=== PATIENT | female | born 1960 | race Caucasian/White ===

== ENCOUNTER → 2020-01-15 10:06 | Outpatient (CLI) | payer SELFPAY ==
[2020-01-15 10:46] LABS: Hemoglobin A1C% w Est Avg Glu 6.6 % (4.0-6.0)
[2020-01-15 11:47] LABS: Alanine Aminotransferase 30 IU/L (<35); Albumin 4.2 g/dL (3.5-5.0); Albumin Globulin Ratio 1.5 (1.0-2.8); Alkaline Phosphatase 88 U/L (38-126); Aspartate Aminotransferase 29 IU/L (14-36); BUN Creatinine Ratio 18.4 (6-22); Bilirubin Total 0.6 mg/dL (0.2-1.3); Blood Urea Nitrogen 14 mg/dL (7-17); Calcium 9.7 mg/dL (8.4-10.2); Carbon Dioxide 25 mmol/L (22-32); Chloride 107 mmol/L (98-107); Cholesterol 181 mg/dL (140-199); Estimated Glomerular Filt Rate > 60.0 mL/min (>60); Globulin 2.8 g/dL (1.7-4.1); Glucose 148 mg/dL (80-110); HDL Cholesterol 56 mg/dL (40-60); HEMOLYSIS < 15 (0-50); LDL Cholesterol Calculated 101 mg/dL (<100); Potassium 5.3 mmol/L (3.4-5.1); Sodium 138 mmol/L (137-145); Triglycerides 118 mg/dL (35-150)
== END ==
PROVIDERS: Family Provider Family Medicine; PCP Family Medicine; Referring Provider Family Medicine; Visit Provider Family Medicine
DX: E78.5 Hyperlipidemia, unspecified (principal); R73.01 Impaired fasting glucose
CPT/HCPCS: 36415; 80053; 80061; 83036

== ENCOUNTER → 2021-10-24 15:19 | Outpatient (CLI) | payer OTHER, SELFPAY ==
--- NOTE | 2021-10-24 | DI.MG.S_ITS ---
BILATERAL DIGITAL SCREENING MAMMOGRAM 3D/2D WITH CAD: 10/24/2021 CLINICAL: Routine screening. Comparison is made to exams dated: 10/01/2016 mammogram, 09/26/2015 mammogram, and 11/04/2013 mammogram - . There are scattered fibroglandular elements in both breasts. Current study was also evaluated with a Computer Aided Detection (CAD) system. There are benign vascular calcifications in both breasts. No significant masses, calcifications, or other findings are seen in either breast. There has been no significant interval change. IMPRESSION: BENIGN There is no mammographic evidence of malignancy. A 1 year screening mammogram is recommended. This exam was interpreted at Station ID: [id number]. NOTE: For mammograms, a report in lay terms will be sent to the patient. Approximately 15% of breast malignancies will not be visualized mammographically. In the management of a palpable breast mass, a negative mammogram must not discourage biopsy of a clinically suspicious lesion. Electronically Signed By: Bee augustine/pauline:10/25/2021 08:56:36 letter sent: Normal Exam ACR BI-RADS Category 2: Benign Finding(s) 3342F
== END ==
PROVIDERS: Family Provider Family Medicine; PCP Family Medicine; Referring Provider Family Medicine; Visit Provider Family Medicine
DX: Z12.31 Encounter for screening mammogram for malignant neoplasm of breast (principal)
CPT/HCPCS: 77063; 77067

== ENCOUNTER → 2021-10-25 14:02 | Outpatient (CLI) | payer OTHER, SELFPAY ==
[2021-10-25 14:54] LABS: COVID19 -Nasal RAPID Negative (Negative)
== END ==
PROVIDERS: Family Provider Family Medicine; PCP Family Medicine; Visit Provider Nurse Practitioner Family
DX: Z20.822 Contact with and (suspected) exposure to COVID-19 (principal)
CPT/HCPCS: 87635; C9803

== ENCOUNTER 2021-10-27 14:55 | Day surgery (SDC) | payer OTHER, SELFPAY ==
--- NOTE | 2021-10-27 12:40 | P.HP_ITS ---
History of Present Illness History of Present Illness Date Patient Seen: 10/27/21 Chief complaint: SCREENING COLONOSCOPY Narrative: 60 Years Old Female seen today for consideration of a screening colonoscopy. Last colonoscopy in 2010 was normal. There have been no lower GI symptoms sugg esting disease such as change in bowel habits, bleeding, abdominal pain or anemia. There's been no family history of colon cancer or colon polyps. Overall health issues have been stable, including no major cardiac events for at least 6 weeks. Past Medical History: Hx of Abnormal Pap Smear: 02/06/10 AGC, HPV neg; Colpo 03/14/2010 COVID-19 CORONAVIRUS INFECTION: Diabetes, Type 2: HYPERTENSION: VITAMIN D DEFICIENCY: HYPERLIPIDEMIA: Neutropenia: CERVICAL DYSPLASIA, NOS: MELANOMA: INSOMNIA: DEPRESSION/ANXIETY: MIGRAINE: HYPERALDOSTERONISM: Past Surgical History: Right 1st metatarsophalangeal joint capsulotomy Colposcopy, 03/14/2010 Colonoscopy, 2010, normal Family History: Father: from cirrhosis of the liver; alcoholic Mother: healthy, alive; diverticulitis, hypertension, hyperlipidemia Sister with hyperlipidemia MGM: DM-2 Social History: Marital Status: 07/26/12 Children: 6 Household Members: 3 Education: 13 Patient History Medical History (Updated 10/27/21 @ 10:40 by Michelle Duncan RN) Diabetes Hyperlipidemia Hypertension Neutropenia Vitamin D deficiency Surgical History (Updated 10/27/21 @ 10:43 by Michelle Duncan RN) H/O foot surgery History of colposcopy Hx of colonoscopy Family & Social History Tobacco & Substance use: Smoking Status Never smoker Meds Home Medications and Allergies Home Medications Medication Instructions Recorded Confirmed Type atorvastatin 10 mg tablet 10 mg PO DAILY 07/22/21 10/27/21 History metoprolol succinate 25 mg 12.5 mg PO DAILY 07/22/21 10/27/21 History tablet,extended release 24 hr metformin 500 mg tablet 500 mg PO DAILY 10/27/21 10/27/21 History trazodone 100 mg tablet 200 mg PO DAILY 10/27/21 10/27/21 History Allergies Allergy/AdvReac Type Severity Reaction Status Date / Time No Known Drug Allergies Allergy Verified 10/27/21 15:33 Review of Systems Review of Systems Narrative: All remaining ROS were reviewed and negative except as addressed. Exam Narrative Exam Narrative: GENERAL: Alert and oriented, appearing stated age and in no acute distress. HEENT: Head normocephalic/atraumatic. Extraocular movements intact. LUNGS: Clear to ausculation bilaterally, no wheezes, rhonchi or rales. CV: Normal S1 and S2 with regular rate and rhythm, no audible murmurs, rubs or gallops. ABDOMEN: Soft, non-tender, non-distended, no organomegaly. Positive bowel sounds. EXTREMITIES: No clubbing, cyanosis, or edema. NEURO: Cranial nerves II through XII grossly intact, no focal deficits. PSYCH: Alert and oriented x 3. SKIN: No concerning lesions. Assessment & Plan Assessment & Plan narrative: 1. Screening for colon cancer Plan for colonoscopy. The nature and character of the procedure as well as a nticipated results were discussed. The possibility of not completing the procedure was also discussed. Possible complications including aspiration pneumonia, bleeding, perforation and reaction to medications either for sedation or preparation and missed lesions were discussed. Questions were answered and proceeding to the colonoscopy was elected. Informed consent signed. I sincerely appreciate the referral allowing me to participate in this patient's care. Please contact me with any questions or concerns.
--- NOTE | 2021-10-27 12:42 | PM.OP.COLON ---
Operative Date/Time/Diagnoses Date of procedure: 10/27/21 Procedure Notes SCOAP/Timeout: 4:07 p.m. Procedure in detail: ENDOSCOPIST: Taylor Coronel MD Sedation RN: Tova Urrutia RN Sedation start time: 4:08 p.m. Sedation end time: 4:22 p.m. PROCEDURE: Colonoscopy INDICATIONS: 1. Screening for colon cancer MEDICATION: Levsin 0.125 mg sublingual, incremental doses of Versed and fentanyl until appropriate level sedation achieved. ASA CLASS: 2 CECAL WITHDRAWAL TIME: 6 minutes COMPLICATIONS: None. EXTENT OF PROCEDURE: Cecum. QUALITY OF PREP: Good with portions of liquid stool. PROCEDURE: Prior to insertion of the colonoscope, a digital rectal examination was accomplished with circumferential palpation of the distal rectal mucosa without significant findings being noted. The high-definition colonoscope was passed into the rectum in the usual fashion and advanced over to the cecum without difficulty. The ileocecal valve, appendiceal stoma, and medial wall all could be inspected and no abnormalities were seen. ASCENDING COLON: As the colonoscope was withdrawn, care was taken to expose and inspect the haustral folds and no abnormalities were seen. HEPATIC FLEXURE: Normal, no polyps, diverticula or other abnormalities. TRANSVERSE COLON: Normal, no polyps, diverticula or other abnormalities. DESCENDING COLON: Mild diverticulosis, otherwise normal, no polyps, or other abnormalities. SIGMOID COLON: Mild diverticulosis, otherwise normal, no polyps or other abnormalities. RECTUM: Normal. J maneuver was produced. There was no significant perianal disease. The J maneuver was broken. The remainder of the rectum was inspected and there was no external hemorrhoid disease. The scope was withdrawn. IMPRESSION: 1. Normal colonoscopy 2. Mild diverticulosis, left-sided PLAN: 1. Repeat colonoscopy 10 years. The possibility of a missed lesion including a malignancy has been discussed with the patient previously. Potential alarm symptoms have been discussed and should be reported immediately.
[2021-10-27] MEDS: HYOSCYAMINE 0.125 MG TABLET PO (15:18)
[2021-10-27] MEDS: LACTATED RINGERS 1,000 ML 200 ML IV (15:18)
[2021-10-27 15:27] VITALS: BP 128/80; PULSE 85; RESP 20; TEMP 36.2; O2SAT 98; BMI 34.5
[2021-10-27] MEDS: ONDANSETRON 4 MG/2 ML INJ IV (16:01)
[2021-10-27] MEDS: fentaNYL 250 MCG/5 ML INJ IV (16:09)
[2021-10-27] MEDS: MIDAZOLAM 5 MG/5 ML VIAL IV (16:09)
[2021-10-27 16:25] VITALS: BP 130/73; PULSE 85; RESP 16; TEMP 36.7; O2SAT 97
[2021-10-27 16:30] VITALS: BP 134/78; PULSE 74; RESP 16; O2SAT 98
[2021-10-27 16:38] VITALS: BP 134/78; PULSE 82; RESP 16; O2SAT 98
[2021-10-27 16:49] VITALS: BP 124/71; PULSE 80; RESP 16; TEMP 36.4; O2SAT 98
== END 2021-10-27 17:20 | disposition home or self-care (01) ==
PROVIDERS: Family Provider Family Medicine; PCP Family Medicine; Referring Provider Student in an Organized Health Care Education/Training Program; Visit Provider Student in an Organized Health Care Education/Training Program
PROC: 0DJD8ZZ Inspection of Lower Intestinal Tract, Via Natural or Artificial Opening Endoscopic (ICD-10-PCS; CPT 45378; principal; 2021-10-27 16:00)
DX: Z12.11 Encounter for screening for malignant neoplasm of colon (principal); E11.9 Type 2 diabetes mellitus without complications; Z79.84 Long term (current) use of oral hypoglycemic drugs; I10 Essential (primary) hypertension; K57.30 Diverticulosis of large intestine without perforation or abscess without bleeding
CPT/HCPCS: 45378; J2250; J2405; J3010

== ENCOUNTER → 2021-12-25 15:58 | Outpatient (CLI) | payer OTHER, SELFPAY ==
--- NOTE | 2021-12-25 16:01 | DI.RAD.S_ITS ---
PROCEDURE: XR FOOT RT MIN 3V INDICATIONS: PAIN IN RIGHT FOOT TECHNIQUE: 3 views of the foot were acquired. COMPARISON: [facility] [place], CR, FOOT COMP MIN 3VW (RT), 02/11/2014, 11:49. [facility], CR, FOOT 3V RIGHT, 11/13/2013, 11:50. FINDINGS: Bones: No acute fractures or dislocations. Healed fracture deformity of the distal fibula incompletely visualized. No suspicious bony lesions. Stable positioning of 1st MTP joint prosthesis. Mild diffuse interphalangeal joint space narrowing with periarticular osteophyte formation. Retrocalcaneal plantar bone spur. Soft tissues: No tibiotalar joint effusion. Achilles tendon appears normal. IMPRESSION: 1. Stable positioning of 1st MTP joint prosthesis. 2. Mild diffuse interphalangeal joint degeneration. 3. Calcaneal enthesopathy. Dictated by: Otoniel Salguero [facility] Interpreted: Pérez Buckley MD on 12/25/2021 at 16:25 Transcribed by: YOU on 12/25/2021 at 16:27 Approved by: Pérez Buckley M.D. on 12/25/2021 at 16:45
== END ==
PROVIDERS: Family Provider Family Medicine; PCP Family Medicine; Referring Provider Family Medicine; Visit Provider Family Medicine
DX: M19.071 Primary osteoarthritis, right ankle and foot (principal); M77.31 Calcaneal spur, right foot; M79.671 Pain in right foot
CPT/HCPCS: 73630

== ENCOUNTER → 2023-10-05 10:22 | Outpatient (CLI) | payer OTHER, SELFPAY ==
[2023-10-05 11:02] LABS: Add Manual Diff / Slide Review NO; Basophils Absolute Auto 100 /uL (0-100); Basophils Percent Auto 1.1 % (0-2); Eosinophils Absolute Auto 100 /uL (0-450); Hematocrit 40.4 % (36-46); Hemoglobin 13.4 g/dL (12.0-16.0); Lymphocytes Absolute Auto 1300 /uL (1100-4500); Mean Corpuscular HGB Conc 33.1 % (30-36); Mean Corpuscular Hemoglobin 29.4 PG (26-34); Mean Corpuscular Volume 88.8 fL (80-100); Monocytes Absolute Auto 400 /uL (0-900); Monocytes Percent Auto 7.2 % (3-14); Neutrophils Absolute Auto 3000 /uL (1500-7000); Neutrophils Percent Auto 61.7 % (50-75); Platelet Count 242 X10^3/uL (150-400); Red Blood Cell Count 4.55 X10^6/uL (4.0-5.2); Red Cell Distribution Width 13.5 % (11.6-14.8); White Blood Cell Count 4.9 X10^3/uL (4.5-11.0)
[2023-10-05 11:20] LABS: Alanine Aminotransferase 20 IU/L (<35); Albumin 3.7 g/dL (3.5-5.0); Albumin Globulin Ratio 1.3 (1.0-2.8); Alkaline Phosphatase 59 U/L (38-126); Aspartate Aminotransferase 25 IU/L (14-36); BUN Creatinine Ratio 26.1 (6-22); Bilirubin Total 0.7 mg/dL (0.2-1.3); Blood Urea Nitrogen 18 mg/dL (7-17); Calcium 9.3 mg/dL (8.4-10.2); Carbon Dioxide 27 mmol/L (22-32); Chloride 110 mmol/L (98-107); Cholesterol 154 mg/dL (140-199); Estimated Glomerular Filt Rate > 60 mL/min (>60); Globulin 2.8 g/dL (1.7-4.1); Glucose 121 mg/dL (80-110); HDL Cholesterol 54 mg/dL (40-60); LDL Cholesterol Calculated 83 mg/dL (<100); Sodium 139 mmol/L (137-145); Total Protein 6.5 g/dL (6.3-8.2); Triglycerides 85 mg/dL (35-150)
[2023-10-05 11:21] LABS: HEMOLYSIS 56 (0-50)
[2023-10-05 11:22] LABS: Potassium 5.8 mmol/L (3.4-5.1)
[2023-10-05 11:50] LABS: Thyroid Stimulating Hormone 1.23 uIU/mL (0.47-4.68)
== END ==
PROVIDERS: Family Provider Family Medicine; PCP Family Medicine; Referring Provider Family Medicine; Visit Provider Family Medicine
DX: Z00.00 Encounter for general adult medical examination without abnormal findings (principal); Z12.11 Encounter for screening for malignant neoplasm of colon; F51.01 Primary insomnia; E11.9 Type 2 diabetes mellitus without complications; E78.00 Pure hypercholesterolemia, unspecified; D70.9 Neutropenia, unspecified; F41.9 Anxiety disorder, unspecified; F32.A Depression, unspecified; M79.671 Pain in right foot; M25.561 Pain in right knee; M25.562 Pain in left knee; G89.29 Other chronic pain; C43.9 Malignant melanoma of skin, unspecified; Z82.61 Family history of arthritis
CPT/HCPCS: 36415; 80053; 80061; 84443; 85025

== ENCOUNTER → 2023-10-26 10:13 | Outpatient (CLI) | payer OTHER, SELFPAY ==
--- NOTE | 2023-10-26 | DI.MG.S_ITS ---
BILATERAL DIGITAL SCREENING MAMMOGRAM 3D/2D WITH CAD: 10/26/2023 CLINICAL: Routine screening. Comparison is made to exams dated: 10/24/2021 mammogram, 10/01/2016 mammogram, and 09/26/2015 mammogram - [facility]. There are scattered areas of fibroglandular density in both breasts (category b / 25%-50% glandular tissue). Current study was also evaluated with a Computer Aided Detection (CAD) system. There are benign vascular calcifications in both breasts. No significant masses, calcifications, or other findings are seen in either breast. There has been no significant interval change. IMPRESSION: BENIGN There is no mammographic evidence of malignancy. A 1 year screening mammogram is recommended. Based on the Tyrer Cuzick model (a risk assessment model) the patient's lifetime risk is 4.3% and her 10 year risk is 1.9%. According to the ACR, ACS, and NCCN guidelines, an annual breast MRI exam along with mammogram is recommended if the patient's lifetime risk is 20% or greater. This exam was interpreted at Station ID: [id number]. NOTE: For mammograms, a report in lay terms will be sent to the patient. Approximately 15% of breast malignancies will not be visualized mammographically. In the management of a palpable breast mass, a negative mammogram must not discourage biopsy of a clinically suspicious lesion. Electronically Signed By: Moreno linares/pauline:10/28/2023 08:25:44 letter sent: Normal Exam ACR BI-RADS Category 2: Benign Finding(s) 3342F
== END ==
PROVIDERS: Family Provider Family Medicine; PCP Family Medicine; Referring Provider Family Medicine; Visit Provider Family Medicine
DX: Z12.31 Encounter for screening mammogram for malignant neoplasm of breast (principal); R92.323 Mammographic fibroglandular density, bilateral breasts
CPT/HCPCS: 77063; 77067

== ENCOUNTER 2024-02-18 08:23 | Day surgery (SDC) | payer OTHER, SELFPAY ==
--- NOTE | 2024-02-17 18:15 | PM.PREOP ---
Pre-operative Note COVID-19 COVID-19 status: Not tested Interval Note History & Physical reviewed/Exam performed by Physician: Yes Changes to H&P: No H&P completed within 30 days and has changed as indicated here:: Fasting glucose is 130
--- NOTE | 2024-02-17 18:18 | P.OP_ITS ---
Operative Date/Time/Diagnoses Date of procedure: 02/18/24 Time of procedure: 09:45 Procedure & Clinicians Procedure: Date of service: February Preoperative diagnoses: 1. Bilateral upper lid dermatochalasis 2. Diabetes 3. HTN 4. Hyperaldosteronism 5. Neutropenia 6. Vitamin D Deficiency 7. Hyperkalemia Postoperative diagnoses: 1. Bilateral upper lid dermatochalasis Procedure: Bilateral upper blepharoplasty Surgeon: Tawny Delgado MD Complications: none Specimen: None Blood loss: Less than 10 ml Anesthesia: Local infiltration with monitored standby. Anesthesiologist: Lore Gates M.D. Indications: Bilateral upper lids obstructing superior vision. Preoperative external photographs taken and loss of vision to within 2 mm of marginal light reflex. Functional surgery. Indication: Patient is a 62-year-old diabetic with significant superior visual loss which is affecting her driving and reading due to overhanging lids. 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 She qualifies for functional surgery based on loss of upper field within 30? of fixation and the marginal reflex less than 2 mm. Her diabetes is stable on metformin was within HbA1c of 6.1. She does have hyper aldosteronism. She understands risk of benefits of surgery and wishes to proceed. These include over and under correction. Bleeding. Infection. And scar. Procedure: In the preoperative holding area the amount skin and subcutaneous tissue to be removed was marked with indelible ink. The contours were carefully checked for symmetry and planned procedure discussed with the patient. The patient was taken to the operating room. IV sedation was given. Proparacaine drops were placed in both eyes for comfort. Local infiltration of anesthetic 2.5 cc into each upper lid, consisting of 1% xylocaine with epinephrine, normal saline and 1 cc hyluronidase was placed. This was then supplemented with full strength 2% xylocaine with epinephrine, 0.5% bupivacaine, and 1 cc hyalurondase. The face was prepped in an open manner. Attention was placed to the right upper lid. Using the previous bruner a number 15. Bard-Aaron blade was used to incise a skin muscle flap. The flap was lifted and removed. Cautery was applied as needed. Contouring of the muscle belly was also performed. Exploration of the nasal and preoperneurotic fat pads were performed removal and contouring with hemostat and scissors as well as cautery were performed. The lid was then closed with running and interrupted 6 0 Vicryl sutures. Same procedure was repeated for the left upper lid.there was one bleeder in the nasal canthus which was cauterized and completely dry prior to closure. The Betadine was removed. Maxitrol ointment was placed to suture line. She returned to recovery room in stable condition. Instructions for postoperative cold packs were reviewed. Tawny Delgado MD. Same procedure as scheduled: Yes
[2024-02-18 09:23] VITALS: BP 169/87; PULSE 63; RESP 16; TEMP 36.4; O2SAT 95; BMI 36.8
[2024-02-18] MEDS: LACTATED RINGERS 1,000 ML 42 ML IV (09:31)
[2024-02-18] MEDS: PROPARACAINE 0.5% OPHTH SOL 2 DROPS EYE-BOTH (10:01)
[2024-02-18] MEDS: LIDOCAINE 1% W/EPI 20 ML INJ (10:13)
[2024-02-18] MEDS: LIDOCAINE 2% W/EPI INJ 10 ML VIAL INJ (10:13)
[2024-02-18] MEDS: NEOMYCIN/POLY/DEX OPHTH OINT 1 APPLIC EYE-BOTH (10:14)
[2024-02-18 11:32] VITALS: BP 147/80; PULSE 52; RESP 16; TEMP 36.6; O2SAT 97
[2024-02-18 11:38] VITALS: BP 139/73; PULSE 54; RESP 16; O2SAT 98
[2024-02-18 11:47] VITALS: BP 143/88; PULSE 56; RESP 16; O2SAT 97
== END 2024-02-18 11:48 | disposition home or self-care (01) ==
PROVIDERS: Family Provider Family Medicine; PCP Family Medicine; Referring Provider Ophthalmology; Visit Provider Ophthalmology
PROC: (CPT 15823; principal; 2024-02-18 09:45)
DX: H02.834 Dermatochalasis of left upper eyelid (principal); H02.831 Dermatochalasis of right upper eyelid; E11.9 Type 2 diabetes mellitus without complications; Z79.84 Long term (current) use of oral hypoglycemic drugs
CPT/HCPCS: 15823; J2704; J3010

== ENCOUNTER → 2025-03-03 14:12 | Outpatient (CLI) | payer MEDICARE, SELFPAY ==
--- NOTE | 2025-03-03 14:14 | DI.MG.S_ITS ---
MM screening mammo BI: 03/03/2025. BI-RADS: 1 CLINICAL: 64-year old female for bilateral screening mammogram. Tyrer-Cuzick lifetime risk of 4.2%. No personal or first-degree family history of breast cancer. PRIOR EXAMS 10/26/2023, 10/24/2021, 10/01/2016, 09/26/2015. MAMMOGRAPHY TECHNIQUE: 2D and 3D (tomosynthesis) digital mammographic views obtained, with additional images as needed for full coverage. Current study was also evaluated with a Computer Aided Detection (CAD) system. DENSITY B. There are scattered areas of fibroglandular density. MAMMOGRAPHY FINDINGS Bilateral: No suspicious mass, asymmetry, microcalcification, or other abnormality seen. No significant change from comparison. IMPRESSION: * No evidence of malignancy. RECOMMENDATIONS Bilateral * Annual screening mammography. OVERALL ASSESSMENT CATEGORY BI-RADS-1: Negative. The [employer] recommends annual screening mammography beginning at age 40 for women with average risk of breast cancer. ELECTRONICALLY SIGNED: Marilyn Lara M.D. on 03/03/2025 at 11:54:19 PM PT Interpreting Station ID: [id number]
--- NOTE | 2025-03-03 14:15 | DI.RAD.S_ITS ---
PROCEDURE: XR DEXA AXIAL SKELETON INDICATIONS: SCREENING/OSTEOPENIA COMPARISON: DEXA 02/15/2011. FINDINGS: Lumbar Spine: L1-L4. Bone mineral density 0.957 g/cm2, T score -0.8. Left Femoral Neck: Bone mineral density 0.726 g/cm2, T score -1.1. Left Hip: Bone mineral density 0.944 g/cm2, T score 0.0. Fracture Risk Calculation (when applicable): 10-year fracture risk of a major osteoporotic fracture 7.4 percent and of a hip fracture 0.6 percent. (T score greater or equal to -1.0 to: NORMAL) (T score from -1.1 to -2.4: OSTEOPENIA) (T score less than or equal to -2.5: OSTEOPOROSIS) IMPRESSION: Osteopenia. Follow-up guidelines as follows: Osteoporosis: Consider a repeat DEXA and Vertebral Fracture Assessment (VFA) exam in 2 years or sooner if medically necessary, to reassess this patient's status. Osteopenia: Consider a repeat DEXA in 2-3 years to reassess this patient's status, or if there is a new clinical indication. Normal: Consider a repeat DEXA in 5 years or sooner, or if there is a new clinical indication. All treatment decisions require clinical judgment and consideration of individual patient factors, including patient preferences, comorbidities, previous drug use, risk factors not captured in the FRAX model (e.g., frailty, falls, vitamin D deficiency, increased bone turnover, interval significant decline in bone density ) and possible under- or over-estimation of fracture risk by FRAX. In addition, the NOF Guide recommends that FDA-approved medical therapies be considered in postmenopausal women and men age >= 50 years with a: * Hip or vertebral (clinical or morphometric) fracture * T-score of <=-2.5 at the spine or hip * Ten-year fracture probability by FRAX of >= 3% for hip fracture or >=20% for major osteoporotic fracture. Dictated by: Moreno Sams M.D. on 03/03/2025 at 16:00 Approved by: Moreno Sams M.D. on 03/03/2025 at 16:02
== END ==
LOC: MAMMO 14:14
PROVIDERS: Family Provider Family Medicine; PCP Family Medicine; Referring Provider Family Medicine; Visit Provider Family Medicine
DX: Z12.31 Encounter for screening mammogram for malignant neoplasm of breast (principal); M85.89 Other specified disorders of bone density and structure, multiple sites
CPT/HCPCS: 77063; 77067; 77080

== ENCOUNTER → 2025-04-19 16:12 | Outpatient (CLI) | payer MEDICARE, SELFPAY ==
--- NOTE | 2025-04-19 16:15 | DI.RAD.S_ITS ---
PROCEDURE: XR KNEE LT 3V INDICATIONS: Chronic left knee pain exacerbation TECHNIQUE: 3 views of the knee were acquired. COMPARISON: None. FINDINGS AND IMPRESSION: Moderate knee arthrosis, worst in the medial compartment. No acute displaced fracture or dislocation. Small joint effusion. Likely old subtle deformity of the proximal fibula. If there is high concern for further derangement, consider MRI evaluation. Dictated by: Sherwin Cervantes M.D. on 04/19/2025 at 16:44 Approved by: Sherwin Cervantes M.D. on 04/19/2025 at 16:44
== END ==
PROVIDERS: Family Provider Family Medicine; PCP Family Medicine; Referring Provider Chiropractor; Visit Provider Chiropractor
DX: S83.92XA Sprain of unspecified site of left knee, initial encounter (principal); M17.12 Unilateral primary osteoarthritis, left knee; M25.462 Effusion, left knee; X58.XXXA Exposure to other specified factors, initial encounter
CPT/HCPCS: 73562